=== PATIENT | female | born 1965 | race Caucasian/White ===

== ENCOUNTER 2019-05-06 16:00 | Emergency (ER) | payer BC, SELFPAY ==
[2019-05-06 16:03] VITALS: BP 147/66; PULSE 72; RESP 14; TEMP 36.6; O2SAT 95
--- NOTE | 2019-05-06 17:58 | W.ED.GENAD ---
Discharge Plan Disposition Patient Disposition: HOME Condition: Stable Discharge Details Chief Complaint: Orthopedic Clinical Impression: Left shoulder pain, Left shoulder strain Primary Care Provider: Chaim Carrillo ED Provider: Daylin Miller Home Meds and New Rx's Prescriptions: Continued fluticasone propionate [Flonase Allergy Relief] 9.9 ML spray,suspension 9.9 ml NS DAILY PRNRF: 0 ibuprofen 200 mg Tablet 400 mg PO QID PRNRF: 0 Discharge Instructions Instructions: Shoulder Pain (ED) Additional Instructions: Rest and ice your left shoulder as much as possible. Alternate Tylenol and Motrin as needed directed for pain. Follow-up with your primary care doctor in 1 week for reevaluation. If your symptoms do not improve or worsen, follow-up with orthopedics for reevaluation and for referral for possible MRI or therapy. Return to the emergency department if you develop any worsening or new concerning symptoms. Referrals: Jorge Burr MD [ [facility] STAFF PHYSICIAN] - Discharge Data Discharge Physician: Daylin Miller Medical Decision Making 53-year-old female who presents with left shoulder and left upper arm pain after trip and fall today. She has limited abduction and flexion at left shoulder due to pain. No deformities noted. No focal deficits. Neurovascular intact. Dose of ibuprofen given here. Left shoulder x-ray negative for acute findings. Differential diagnosis includes strain versus sprain. Discussed that there is also possibility of rotator cuff tear. She is instructed to rest, ice, do gentle range of motion exercises to prevent frozen shoulder. She is instructed to follow the primary care doctor for reevaluation and referral to orthopedics if her symptoms do not improve or worsen. Medical Records Medical records reviewed: Yes I reviewed the patient's medical records. Imaging Data Radiologic Study: Radiologist's impression: XR Left Shoulder EXAM DATE/TIME: 05/06/2019 6:33 PM CLINICAL HISTORY: 53 years old, female; Signs and symptoms; Other: S/P fall onto L shoulder, R/O FX TECHNIQUE: Imaging protocol: XR Left shoulder. Views: 2 or more views. COMPARISON: No relevant prior studies available. FINDINGS: Bones/joints: No fractures. Glenohumeral alignment is normal. A.C. joint alignment is normal. No blastic or lytic lesions. Adjacent ribs and lung parenchyma are unremarkable. Pleural space: No visible effusion or pneumothorax. Soft tissues: No gross soft tissue abnormalities. IMPRESSION: No acute osseous abnormalities. HPI General Mode of arrival: ambulatory. Date/Time Provider Initiated Documentation: 05/06/19 16:06. Limitations to Documentation: no limitations. Information obtained by: patient. HPI Narrative: Patient is a 53-year-old female who presents with left shoulder pain after trip and fall over a gate today in which she extended her left arm. She denies any other injuries. She does admit to similar pain in her left shoulder of the past 2 weeks after a previous fall. She states she has limited extension of her arm due to left shoulder and left upper arm pain. Last dose of Motrin 11 AM. Related Data Home Medications Medication Instructions Recorded Confirmed fluticasone propionate [Flonase 9.9 ml NS DAILY PRN 12/09/15 05/06/19 Allergy Relief] ibuprofen 400 mg PO QID PRN 05/06/19 05/06/19 Allergies Allergy/AdvReac Type Severity Reaction Status Date / Time No Known Allergies Allergy Unverified 05/06/19 16:07 General Stated Complaint: Orthopedic SORIN: 3 Review of Systems Review of Systems All systems reviewed & are unremarkable except as noted in HPI and below ENT Denies vertigo Musculoskeletal Denies back pain, Denies joint swelling and Reports other (L shoulder pain) Integumentary/Breasts Denies lesions and Denies rash Neurologic Denies vertigo PFS Medical History No significant past medical history (Acute) Surgical History History of lumbar discectomy (Acute) Colonoscopy - MAC (06/08/17) Social History Smoking/Tobacco Use Status: Current every day Tobacco Type: cigarettes Alcohol Intake: never Drug use: Never Substance use type: does not use Do you feel safe at home: Yes Do you feel safe in your relationship?: Yes Exam Const General: cooperative, healthy appearing and no acute distress HENMT Head: normal to inspection Mouth: oral mucosae normal Eyes General: appearance normal, both eyes and all related structures Neck Neck: normal visual inspection Resp Effort & Inspection: normal respiratory effort and able to speak in complete sentences Cardio Rate: regular rate Skin General skin exam: no rashes or lesions noted Neuro General: alert, awake and oriented x3 Motor: muscle tone normal throughout Extrem Other: Limited abduction and flexion due to pain in left shoulder and left upper arm. No deformities noted. No ecchymosis, erythema, edema. No tenderness to palpation of left shoulder or left upper arm. Psych Appearance: grossly normal Affect: normal affect Course Vital Signs Temperature 97.9 F 05/06/19 16:03 Pulse 72 05/06/19 16:03 Respiratory Rate 14 05/06/19 16:03 Blood Pressure 147/66 H 05/06/19 16:03 Pulse Oximetry 95 05/06/19 16:03 Temperature 97.9 F 05/06/19 16:03 Temperature Source Temporal Artery Scan 05/06/19 16:03 Pulse 72 05/06/19 16:03 Respiratory Rate 14 05/06/19 16:03 Respiratory Effort Non-Labored 05/06/19 16:05 Blood Pressure 147/66 H 05/06/19 16:03 Blood Pressure Position Sitting 05/06/19 16:03 Pulse Oximetry 95 05/06/19 16:03 Oxygen Delivery Method Room Air 05/06/19 16:03 Oxygen Flow Rate 0 05/06/19 16:03 Pain Level 3 05/06/19 16:07
[2019-05-06] MEDS: Ibuprofen 600 MG TAB PO (18:01)
[2019-05-06 18:04] VITALS: BP 116/73; PULSE 69; RESP 22; TEMP 37.1; O2SAT 95
--- NOTE | 2019-05-06 18:40 | DI.RAD_ITS ---
SYMPTOM/DIAGNOSIS: S/P FALL, ? FX, PAIN LEFT SHOULDER: Four views. No acute fracture or dislocation is seen. Mild degenerative changes are seen at the acromioclavicular joint. The soft tissues are unremarkable. IMPRESSION: No acute fracture or dislocation of the shoulder.
--- NOTE | 2019-05-06 18:42 | DI.VRAD_ITS ---
EXAM: XR Left Shoulder EXAM DATE/TIME: 05/06/2019 6:33 PM CLINICAL HISTORY: 53 years old, female; Signs and symptoms; Other: S/P fall onto L shoulder, R/O FX TECHNIQUE: Imaging protocol: XR Left shoulder. Views: 2 or more views. COMPARISON: No relevant prior studies available. FINDINGS: Bones/joints: No fractures. Glenohumeral alignment is normal. A.C. joint alignment is normal. No blastic or lytic lesions. Adjacent ribs and lung parenchyma are unremarkable. Pleural space: No visible effusion or pneumothorax. Soft tissues: No gross soft tissue abnormalities. IMPRESSION: No acute osseous abnormalities. Dictated and Authenticated by: Rei Wakefield MD. Ordering:MARTELL Mao MD
== END 2019-05-06 19:26 | disposition home or self-care (01) ==
PROVIDERS: Emergency Provider Physician Assistant; PCP Internal Medicine
DX: S46.912A Strain of unspecified muscle, fascia and tendon at shoulder and upper arm level, left arm, initial encounter (principal); W01.0XXA Fall on same level from slipping, tripping and stumbling without subsequent striking against object, initial encounter
CPT/HCPCS: 99283; 73030; 99282

== ENCOUNTER 2019-11-21 02:57 | Outpatient (CLI) | payer BC, SELFPAY ==
--- NOTE | 2019-11-21 08:40 | DI.MAMMO_ITS ---
EXAM: MG MAMMO SCREENING CLINICAL HISTORY: SCREENING Z12.39 TECHNIQUE: Bilateral full field digital CC and MLO mammographic images were obtained with 3D tomosyn thesis and utilizing computer aided detection (CAD). COMPARISON: Available for comparison. FINDINGS: Masses/Architectural Distortion: The nodule in the subareolar region of the right breast appears stab le. No suspicious masses are seen. Microcalcifications: No suspicious pleomorphic-type are seen. Skin Thickening/Nipple Retraction: None. IMPRESSION: 1. No significant interval change with no specific features of malignancy noted. 2. Unless there is more urgent need, screening mammography is recommended, as per [employer] guidelines. ACR BI-RAD Category- 1 Negative Breast Density - Category C - Heterogeneously dense The mammogram demonstrates the patient's breast tissue is dense. Dense breast tissue is very common a nd is not abnormal but dense breast tissue can make it harder to find cancer on a mammogram. Also, de nse breast tissue may increase their breast cancer risk. This information about the result of the [facility] mogram report was provided to the patient to raise their awareness. Use this report when you speak wi th the patient about their risks for breast cancer, which includes their family history. At that time , you may recommend for more screening tests (Ultrasound or MRI) as they might be useful based on the ir risk. A negative radiographic report should not delay biopsy if a dominant or clinically suspicious mass is present. Up to ten percent of cancers are not identified on mammography. A negative report may reinforce clinical impression. Adenosis and dense breasts may obscure an underlying neoplasm. False positive reports average 6 to 10%. Patient will receive a letter notifying them of these results.
== END 2019-11-21 03:17 ==
PROVIDERS: PCP Internal Medicine; Visit Provider Nurse Practitioner Family
DX: Z12.31 Encounter for screening mammogram for malignant neoplasm of breast (principal)
CPT/HCPCS: 77063; 77067

== ENCOUNTER 2022-01-08 17:56 | Emergency (ER) | payer BC, SELFPAY ==
[2022-01-08 18:00] VITALS: BP 142/80; PULSE 72; RESP 18; TEMP 36.7; O2SAT 100
--- NOTE | 2022-01-08 18:00 | DI.CT_ITS ---
Exam(s) CT HEAD WO EXAM: CT HEAD WO CLINICAL HISTORY: AMS. TECHNIQUE: Imaging Protocol: Axial computed tomography images with coronal and sagittal reformatted images were created and reviewed COMPARISON: No exams were available for comparison FINDINGS: Ventricles and Extra axial spaces: Normal in size and morphology for the patient's age. Hemorrhage: None. Cerebral parenchyma: Normal. Midline shift: None. Brainstem/Cerebellum: Normal. Calvarium: Normal. Visualized Paranasal sinuses/Mastoids: Clear. Soft Tissues: Unremarkable. IMPRESSION: No acute intracranial process. RADIATION DOSE DELIVERED: 643.93mGy.cm Total DLP DATA REPOSITORY: All CT scans at this facility are submitted to the National Radiology Data Registry (NRDR) Dose Index Registry (DIR) with the [employer] (ACR). RADIATION OPTIMIZATION: All CT scans at this facility use at least one of these dose optimization te chniques: automated exposure control; mA and/or kV adjustment per patient size (includes targeted exa ms where dose is matched to clinical indication); or iterative reconstruction.
--- NOTE | 2022-01-08 18:00 | RT.EKG_ITS ---
APPROVED REPORT Exam: Resting ECG Reason for Exam: [facility] Patient Location: E HR:69 bpm ECG Measurements Heart Rate 69 AXIS ND 161 P 59 QRSd 101 QRS 0 QT 404 T [id number] QTc 433 Conclusion Sinus rhythm...normal P axis, V-rate 60- 99 Indeterminate axis...QRS axis indeterminate Nonspecific T abnormalities, inferior leads...T <-0.10mV, II III aVF Physician: no stemi
--- NOTE | 2022-01-08 18:00 | DI.RAD_ITS ---
Exam(s) XR CHEST 2V PA LATERAL EXAM: XR CHEST 2V PA LATERAL CLINICAL HISTORY: SOB TECHNIQUE: 2D digital imaging was performed of the chest. Two images were obtained. PA and lateral views were obtained. COMPARISON: No exams were available for comparison FINDINGS: MEDIASTINUM: Normal. HEART: Normal. PULMONARY VASCULATURE: Normal. LUNGS: Clear. PLEURAL SPACE: No pleural effusion or pneumothorax. BONE:Within normal limits for the patient's age. OTHER FINDINGS:Normal. IMPRESSION: No acute pulmonary findings. DATA REPOSITORY: RADIATION DOSE DELIVERED:
[2022-01-08 18:03] VITALS: RESP 15
--- NOTE | 2022-01-08 18:07 | ED.GENADUL_ITS ---
Discharge Plan Disposition Patient Disposition: HOME Condition: Improving Discharge Details Clinical Impression: Exhaustion, Disorientation Primary Care Provider: Chaim Carrillo ED Provider: Brittaney Nelson Home Meds and New Rx's Prescriptions: No Action fluticasone propionate [Flonase Allergy Relief] 9.9 ML spray,suspension 9.9 ml NS DAILY PRN0RF Label Comments: not used recently ibuprofen 200 mg Tablet 400 mg PO QID PRN0RF Discharge Instructions Instructions: Dehydration (ED), Fatigue (ED) Additional Instructions: At this time work-up is largely within normal limits. I do believe that this is exhaustion from overworking and dehydration. Please try to eat 3 small meals a day. Follow up with primary care provider in 3-5 days. Return to ED sooner if any worsening or concerns. Increase oral fluids. Please take Tylenol or Ibuprofen with food every 4-6 hours as needed for pain and swelling. Stand Alone Forms: Work Release Referrals: Chaim Carrillo MD [Primary Care Provider] - 3 days Discharge Data Discharge Date/Time-TO BE ENTERED AT DEPARTURE: 01/08/22 19:44 Medical Decision Making <Brittaney Nelson - Last Filed: 01/08/22 20:04> 56-year-old female presents to the ER with chief complaint of disorientation and nausea. Patient is a poor historian. She reports that last thing to remember she was on a conference call. She denies any pain. Denies any headache or blurry vision. No numbness or tingling. She denies any recent head injuries. Denies any significant past medical history denies medications on a normal basis. She denies any alcohol. No focal neuro deficits noted on initial exam. Patient reports she is vaccinated for Covid. 1815: Spoke with patients who reports that she was on the phone with her colleague and he noted that she seemed disoriented. He reports been that she has been working at least 100 hours a week and drinking coffee all day and night and he reports that she probably has not eaten anything today. At this time work-up includes labs, EKG, CT head and x-ray. Labs show no leukocytosis, sodium slightly low 134, glucose 131 urinalysis shows small blood 3-5 RBCs no leukocytes no nitrites. Culture is not indicated at this time. Initial troponin within normal limits. EKG normal sinus rhythm. EKG was reviewed by Dr. Dada Shaikh ER attending, please see his official report. FINDINGS: Brain: Cerebral sulci show bilateral symmetry with no supratentorial mass or mass effect detected. Brainstem and cerebellum are unremarkable. There is no evidence of acute intracranial hemorrhage. Cerebral ventricles: Ventricular and cisternal spaces are normal in size and configuration and there is no midline shift or hydrocephalus seen. Paranasal sinuses: Grossly clear throughout. Mastoid air cells: Grossly clear bilaterally. Bones/joints: Bony calvarium and skull base are intact and no acute fractures are detected. Soft tissues: Unremarkable. IMPRESSION: Unremarkable noncontrast head CT with no evidence of an acute intracranial process. Imaging protocol: XR of the chest. Views: 2 views. COMPARISON: CR XR shoulder LT complete 2+V 05/06/2019 6:34 PM FINDINGS: Lungs: Lungs are clear throughout with no mass or consolidation detected. Pleural spaces: No pneumothorax or pleural effusion detected. Heart/Mediastinum: Heart size is normal and vessel margins are sharply defined. Bones/joints: No acute osseous lesions are detected. IMPRESSION: No acute findings. Thank you for allowing us to participate in the care of your patient. Dictated and Authenticated by: Rangel Andrews MD 193: Discussed imaging results and labs with patient and . Verbalized understanding. She reports feeling improved. P.o. challenge performed prior to discharge. Patient tolerating without difficulty. Patient has received a liter of normal saline. Has remained hemodynamically stable. She appears much more alert and oriented upon reevaluation. At this time I do feel that patient symptoms are due to exhaustion and stress. Discussed taking time off from work and eating 3 meals a day with patient who verbalized understanding. She reports she did not eat anything today. Patient given a work note until Wednesday use if she desires. Discussed tricked return instructions verbalized understanding. This text was generated using go2 mediaation system, please disregard any oddities of phrase or misspellings. HPI <Brittaney Nelson - Last Filed: 01/08/22 20:04> General Mode of arrival: wheelchair . Date/Time Provider Initiated Documentation: 01/08/22 17:58 . Limitations to Documentation: altered mental status . Information obtained by: patient, RN notes reviewed and old records reviewed . HPI Narrative: 56-year-old female presents to the ER with chief complaint of disorientation and nausea. Patient is a poor historian. She reports that last thing to remember she was on a conference call. She denies any pain. Denies any headache or blurry vision. No numbness or tingling. She denies any recent head injuries. Denies any significant past medical history denies medications on a normal basis. She denies any alcohol. No focal neuro deficits noted on initial exam. Patient reports she is vaccinated for Covid. Related Data Home Medications Medication Instructions Recorded Confirmed fluticasone propionate 50 9.9 ml NS DAILY PRN 12/09/15 01/08/22 mcg/actuation nasal spray,suspension (Flonase Allergy Relief) ibuprofen 200 mg tablet 400 mg PO QID PRN 05/06/19 01/08/22 Allergies Allergy/AdvReac Type Severity Reaction Status Date / Time No Known Allergies Allergy Unverified 01/08/22 18:07 General Stated Complaint: AMS/LOC SORIN: 3 Review of Systems <Brittaney Nelson - Last Filed: 01/08/22 20:04> Narrative: Constitutional: Negative for weight loss, well groomed, normal body habitus, appears comfortable. Is mildly confused. Reports feeling disoriented. HEENT: Denies trauma, headaches, blurry vision, nasal discharge, sore throat, trouble swallowing. Chest: Denies chest pain, palpitations, irregular rhythm, hypertension. Respiratory: Denies cough, hemoptysis. Positive shortness of breath. GI: Denies abdominal pain, vomiting, diarrhea, constipation. Positive nausea. : Denies dysuria, hematuria, flank pain, rectal bleeding. Neuro: Denies dizziness, blurry vision, weakness, syncope, headache or facial numbness. Hematologic: Denies easy bruising, intolerance to heat or cold, hair loss. PFSH <Brittaney Nelson - Last Filed: 01/08/22 20:04> All Active Problems (Updated 01/08/22 @ 19:34 by Brittaney Nelson) Exhaustion (Acute) Disorientation (Acute) Medical History (Updated 01/08/22 @ 19:34 by Brittaney Nelson) No significant past medical history Surgical History (Updated 05/06/19 @ 19:23 by Daylin Miller DO) Colonoscopy - MAC (06/08/17) History of lumbar discectomy Social History Smoking/Tobacco Use Status: Current every day Tobacco Type: cigarettes Smoking risk assessment performed?: Yes Alcohol Intake: never Drug use: Never Substance use type: does not use Do you feel safe at home: Yes Do you feel safe in your relationship?: Yes Exam <Brittaney Nelson - Last Filed: 01/08/22 20:04> Narrative Exam Narrative: Constitutional: Alert and oriented x3. Appears stated age. Normal body habitus. Head: Normocephalic, no trauma. Eyes: Pupils PERRL, Red reflex noted, EOM's intact. Eyelids symmetrical without lesions, discharge, or swelling. ENT: Bilateral TM's WNL, External ear normal to inspection, no mastoid TTP, swelling, or erythema, Nasal turbinates WNL, no nasal discharge. Normal dentition, Posterior pharynx WNL, no exudate. Chest: RRR, Normal S1, S2, distal pulses intact. Resp: Lungs clear to auscultation bilaterally, no wheezes, rales, or rhonchi. Abdomen: Soft, non-distended, Normoactive bowel sounds all 4 quads. Musculoskeletal: Normal gait, 5/5 strength to all four extremities. Skin: No suspicious rashes or lesions. Capillary refill less than 2 sec. Neurologic: Cranial nerves II-XII intact. Alert and oriented x 3. Motor: No deficits noted. Sensory: Intact bilaterally all 4 extremities. Reflexes: DTR's intact bilaterally.. Hematologic/Lymphatic: No ecchymosis, no lymphadenopathy. Course <Brittaney Nelson - Last Filed: 01/08/22 20:04> Vital Signs Vital signs: Vital Signs Temperature 36.7 C 01/08/22 18:00 Pulse 72 01/08/22 18:00 Respiratory Rate 18 01/08/22 18:00 Blood Pressure 142/80 H 01/08/22 18:00 Pulse Oximetry 100 01/08/22 18:00 Temperature 36.7 C 01/08/22 18:00 Temperature Source Temporal Artery Scan 01/08/22 18:00 Pulse 72 01/08/22 18:00 Respiratory Rate 15 01/08/22 18:03 Respiratory Effort Non-Labored 01/08/22 18:03 Respiratory Depth Normal 01/08/22 18:03 Respiratory Pattern Irregular 01/08/22 18:03 Blood Pressure 142/80 H 01/08/22 18:00 Blood Pressure Position Supine 01/08/22 18:00 Pulse Oximetry 100 01/08/22 18:00 Oxygen Delivery Method Room Air 01/08/22 18:00 Oxygen Flow Rate 0 01/08/22 18:00 Pain Level 0 01/08/22 18:00
[2022-01-08 18:17] LABS: Abs Immature Grans 0.02 10^3/uL (0.0-0.06); Absolute Basophil Count 0.06 10^3/uL (0.0-0.2); Absolute Eosinophil Count 0.18 10^3/uL (0.0-0.7); Absolute Lymphocyte Count 1.75 10^3/uL (1.2-3.4); Absolute Monocyte Count 0.48 10^3/uL (0.1-0.8); Absolute Neutrophil Count 7.89 10^3/uL (1.2-6.7); Basophils % 0.6; Eosinophils % 1.7; HCT 40.9 % (36.0-46.0); HGB 13.2 g/dL (11.2-15.7); Immature Grans % 0.2; Lymphocytes % 16.9; MCH 29.4 pg (27.0-33.0); MCHC 32.3 % (32.0-36.0); MCV 91.1 fL (80-95); MPV 9.1 fL (8.0-11.0); Monocytes % 4.6; Nucleated RBC 0 %; Platelet Count 259 10^3/uL (130-400); RBC 4.49 10^6/uL (3.93-5.22); RDW 12.5 % (11.7-14.6); RDW-SD 41.6 fL; WBC 10.38 10^3/uL (4.4-10.8)
[2022-01-08] MEDS: Ondansetron 4 MG/2 ML VIAL IVP (18:26)
[2022-01-08] MEDS: Normal Saline 1,000 ML 1000 ML IV (18:26)
[2022-01-08 18:57] LABS: Bilirubin Negative (Negative); Blood Small (Negative); Clarity Clear (Clear); Glucose Negative (Negative); Ketones Negative (Negative); Leukocyte Esterase Negative (Negative); Nitrite Negative (Negative); Specific Gravity >= 1.030 (1.005-1.025); Urobilinogen 0.2 EU/dL (Up TO 0.2)
[2022-01-08 19:05] LABS: Bacteria Negative HPF (Negative); C & S Indicated? No; Casts Negative LPF (Negative); Crystals Negative HPF (Negative); Epithelial Cells Few HPF (Negative); Mucus Trace (Negative); WBC 0-2 HPF (0-5)
[2022-01-08 19:08] LABS: ALT 22 U/L (14-59); AST 14 U/L (15-37); Albumin 3.7 g/dL (3.4-5.0); Alkaline Phosphatase 59 U/L (46-116); Anion Gap 7.6 mmol/L (3-11); BUN 18 mg/dL (7-18); Bilirubin, Total 0.4 mg/dL (0.2-1.0); CO2 25.4 mmol/L (21.0-32.0); CREATININE 0.9 mg/dL (0.55-1.02); Calcium 8.7 mg/dL (8.5-10.1); Chloride 101 mmol/L (98-107); Glucose 131 mg/dL (74-106); Potassium 4.1 mmol/L (3.5-5.1); Sodium 134 mmol/L (136-145); Total Protein 6.9 g/dL (6.4-8.2); Troponin I < 50 ng/L (<or=60)
--- NOTE | 2022-01-08 19:08 | DI.VRAD_ITS ---
PROCEDURE INFORMATION: Exam: CT Head Without Contrast Exam date and time: 01/08/2022 6:11 PM Age: 56 years old Clinical indication: Altered mental status/memory loss; Prior surgery TECHNIQUE: Imaging protocol: Computed tomography of the head without contrast. Radiation optimization: All CT scans at this facility use at least one of these dose optimization techniques: automated exposure control; mA and/or kV adjustment per patient size (includes targeted exams where dose is matched to clinical indication); or iterative reconstruction. COMPARISON: CT NECK WITH CONTRAST 06/27/2016 10:58 AM FINDINGS: Brain: Cerebral sulci show bilateral symmetry with no supratentorial mass or mass effect detected. Brainstem and cerebellum are unremarkable. There is no evidence of acute intracranial hemorrhage. Cerebral ventricles: Ventricular and cisternal spaces are normal in size and configuration and there is no midline shift or hydrocephalus seen. Paranasal sinuses: Grossly clear throughout. Mastoid air cells: Grossly clear bilaterally. Bones/joints: Bony calvarium and skull base are intact and no acute fractures are detected. Soft tissues: Unremarkable. IMPRESSION: Unremarkable noncontrast head CT with no evidence of an acute intracranial process. Dictated and Authenticated by: Rangel Andrews MD. Ordering:ZACH Quispe MD
--- NOTE | 2022-01-08 19:10 | DI.VRAD_ITS ---
PROCEDURE INFORMATION: Exam: XR Chest Exam date and time: 01/08/2022 6:11 PM Age: 56 years old Clinical indication: Other: SOB TECHNIQUE: Imaging protocol: XR of the chest. Views: 2 views. COMPARISON: CR XR shoulder LT complete 2+V 05/06/2019 6:34 PM FINDINGS: Lungs: Lungs are clear throughout with no mass or consolidation detected. Pleural spaces: No pneumothorax or pleural effusion detected. Heart/Mediastinum: Heart size is normal and vessel margins are sharply defined. Bones/joints: No acute osseous lesions are detected. IMPRESSION: No acute findings. Dictated and Authenticated by: Rangel Andrews MD. Ordering:ZACH Quispe MD
[2022-01-08 19:46] VITALS: BP 136/72; PULSE 76; RESP 16; TEMP 36.8; O2SAT 100
== END 2022-01-08 19:44 | disposition home or self-care (01) ==
PROVIDERS: Emergency Provider Registered Nurse Emergency; PCP Internal Medicine
DX: R41.0 Disorientation, unspecified (principal); R53.83 Other fatigue; R11.0 Nausea
CPT/HCPCS: 36415; 80053; 81025; 93005; 96361; 96374; 99285; 70450; 71046; 81003; 81015; 83735; 84484; 85025; 93010; 99284; J2405

== ENCOUNTER → 2022-03-26 02:17 | Outpatient (CLI) | payer BC, SELFPAY ==
--- NOTE | 2022-03-26 08:00 | DI.MAMMO_ITS ---
Exam(s) MAMMO SCREENING EXAM: MAMMO SCREENING CLINICAL HISTORY: SCREENING, Z12.31 TECHNIQUE: Mammograms were interpreted according to the usual protocol including computer analysis w [facility] CAD system, tomosynthesis and C-view imaging. COMPARISON: FINDINGS: The breasts are heterogeneously dense. No dominant mass or clumped microcalcification is identified in either breast. Current examination is compared with previous examinations including October 2019 and there has been no gross interval change in appearance in comparison with the prior studies. IMPRESSION: No specific evidence of malignancy at this time. Routine screening examinations are suggested at yea rly intervals in this age group according to the ACS ACR guidelines. BI-RADS Category 1 - Negative Breast Density - Category C - Heterogeneously dense
== END ==
PROVIDERS: PCP Internal Medicine; Visit Provider Family Medicine
DX: Z12.31 Encounter for screening mammogram for malignant neoplasm of breast (principal)
CPT/HCPCS: 77063; 77067

== ENCOUNTER 2022-04-10 15:40 | Outpatient (REF) | payer BC, SELFPAY ==
--- NOTE | 2022-04-10 10:15 | PAPFT_PTH ---
PATIENT: Kya Presley LOC: [facility] U#:[id number] AGE/SX: 56/F ROOM: RE04/10/[address]: Maranda Ya : 1965 BED: DIS: 04/10/2022 SPEC #: [id number] RECD: 04/10/22 16:06 STATUS: DENISSE REKayy #: [id number] MARLEE: 04/10/22 10:[address]: Maranda Ya DEPT: [facility] Cytology RECD BY: Joanne Ambriz ENTERED: 04/10/22 16:06 SP TYPE: PAPFT OTHR DR: Chaim Carrillo Tissues: 1 - CX/ENDOCX FOR PAP SMEARS Procedures: PAP THIN PREP/U[facility] Screening HPV DNA PROBE Comments: [id number]
== END 2022-04-10 15:41 | disposition home or self-care (01) ==
LOC: LBN 15:40
PROVIDERS: PCP Internal Medicine; Visit Provider Family Medicine
DX: Z00.00 Encounter for general adult medical examination without abnormal findings (principal); Z12.4 Encounter for screening for malignant neoplasm of cervix; Z01.419 Encounter for gynecological examination (general) (routine) without abnormal findings; Z11.51 Encounter for screening for human papillomavirus (HPV)
CPT/HCPCS: 88142; 87624

== ENCOUNTER 2022-11-12 10:16 | Day surgery (SDC) | payer BC, SELFPAY ==
--- NOTE | 2022-11-12 05:19 | PDOC.DSDIS_ITS ---
Date of service: 11/12/22 Time of Service: 12:32 Discharge Plan Disposition Patient Disposition: Home Condition: Good Discharge Details Reason For Visit: Colonoscopy Attending Provider: Mo Celaya Primary Care Provider: Chaim Carrillo Home Meds and New Rx's Prescriptions: Continued fluticasone propionate [Flonase Allergy Relief] 9.9 ML spray,suspension 9.9 ml NS DAILY PRN Label Comments: not used recently albuterol sulfate [Ventolin HFA] 90 mcg/actuation HFA aerosol inhaler 2 puff inhalation Q6H PRN ibuprofen 200 mg Tablet 400 mg PO QID PRN Discontinued polyethylene glycol 3350 17 gram/dose powder 238 g PO ONCE Qty: 238 0RF Rx Instructions: take per colonoscopy instructions bisacodyl [Dulcolax (bisacodyl)] 5 mg tablet,delayed release (DR/EC) 5 mg PO ONCE Qty: 4 0RF Rx Instructions: take per colonoscopy instructions Discharge Instructions Instructions: Colorectal Polyps (DC) Additional Instructions: 1. If tolerated, consume a soft, low fiber diet for 1-2 days. 2[address] Do not drive, drink alcohol, operate machinery, make critical decisions, or d o activities that require coordination or balance for 24 hours. 3. Because air was put into your colon during the procedure, expelling air from your rectum (passing gas or farting) is normal. 4. You may not have a bowel movement for 1-3 days because of the colonoscopy prep. This is normal. 5. Go directly to the emergency room if you notice any of the following: Develop chills (warm to touch), or if you have a thermometer and your temperature is above 101 Difficulty breathing or difficultly swallowing Persistent vomiting Severe abdominal pain, other than gas cramps Severe chest pain Black, tarry stools Any bleeding ? exceeding one tablespoon 6. Call your physician if the site where your intravenous was started becomes red, swollen, painful, and warm to touch. 7. Your physician has reviewed your pre-procedure medications. Please continue to take those medications as previously ordered. You will be given specific information/education regarding any changes to your medications before leaving. Stand Alone Forms: Delvis Parsons (SEBASTIÁNU) Activity:: Activity as Tolerated Diet:: As Tolerated Discharge Orders Discharge Orders: Discharge Order (Routine); Ordered 11/12/22 Ordered By: Mo Celaya DS: Diagnosis Discharge Diagnosis (1) Colorectal polyp detected on colonoscopy: Status: Acute Asessment and Plan: I will contact you when the pathology results from the biopsies are available.
--- NOTE | 2022-11-12 05:21 | W.COLOREPORT ---
Date of service: 11/12/22 Time of Service: Colonoscopy Report Date of procedure: 11/12/22 Pre-op diagnosis general: Routine health maintenance screening colonoscopy Post-op diagnosis procedure note: other (Colonoscopy with polypectomy) Procedure: colonoscopy Surgeon: Mo Celaya Anesthesia Type: General:No Airway Estimated blood loss (mL): 20 Pathology: other (polyps at 20, 17 and 15 cm) Complications: None Disposition: same day Indications: Kya is a 56 year old woman presenting for screening colonoscopy Prep: Miralax/Dulcolax Procedure Start Time: : Procedure End Time: Retraction Time: 21 Findings: 0.5 cm polyp at 20 CM CF, 0.25 cm polyps at 17 cm CF, 0.75 cm at 15 snare Procedure Description: After the induction of monitored anesthetic care, and with the patient in left lateral decubitus position, I began by performing an external anorectal exam.? Perineum and skin were normal, as was the anal verge.? There was no evidence of external hemorrhoids.? Next, I performed a digital rectal exam.? This was normal.? Next, I advanced a colonoscope into the rectal vault.? I performed retroflexion.? This was normal.? Using insufflation, I then advanced the colonoscope beyond the rectal folds and into the sigmoid colon before advancing towards the cecum.? The quality of the prep was excellent.? The scope was noted to be in the cecum by identification of the ileocecal valve and appendiceal orifice.? I then began withdrawing the colonoscope using repeated irrigation as necessary for full evaluation of the colonic mucosa. ?Once the scope was withdrawn to the level of the rectum, great care was taken to examine portions of the rectal folds.?Around 20 cm from the anal verge I identified a 0.5 cm polyp. ?It appeared sessile in character. ?I was able to remove this with a cold forcep. Similarly, I performed cold forcep polypectomy on two seperate polyps at 17 cm. Both were less than 0.5 cm, and both were sessile. I examined the site, and there was minimal bleeding. Finally, around 15 cm from the anal verge I identified a 0.75 cm polyp. ?It appeared pedunculated in character. ?I was able to remove this with a cold snare. ?I examined the site, and there was minimal bleeding. ?Once this was completed, I continued to withdraw the scope and examine the remainder of the colonic mucosa.?Once this was completed, I continued to withdraw the scope and examine the remainder of the colonic mucosa. Finally, the scope was withdrawn and the patient was brought to the same-day surgery recovery unit as the anesthetic wore off. ?The findings and instructions were shared with the patient prior to discharge.
[2022-11-12 10:33] VITALS: BP 122/71; PULSE 85; RESP 16; TEMP 36.5; O2SAT 96
[2022-11-12] MEDS: Lactated Ringers 1,000 ML 80 ML IV (10:55)
--- NOTE | 2022-11-12 10:56 | ANES.PREOP_ITS ---
General Info Date of Service Date Performed: 11/12/22 Height: 5 ft 5 in Weight: 72.3 kg Body Mass Index (BMI): 26.5 Surgical Procedure: Operation Date: 11/12/22 10:35 Proposed Procedure Side Surgeon p Colonoscopy Mo Celaya MD Pre-Op Diagnosis Post-Op Diagnosis COLON CANCER SCREENING FAMILY HISTORY OF COLON CANCER PERSONAL HISTORY OF POLYPS Meds Allergies and Home Medications Allergies Allergy/AdvReac Type Severity Reaction Status Date / Time No Known Allergies Allergy Unverified 11/12/22 10:32 Home Medication Medication Instructions Recorded fluticasone propionate 50 9.9 ml NS DAILY PRN 12/09/15 mcg/actuation nasal spray,suspension (Flonase Allergy Relief) ibuprofen 200 mg tablet 400 mg PO QID PRN 05/06/19 albuterol sulfate 90 mcg/actuation 2 puff inhalation Q6H PRN 07/13/22 aerosol inhaler (Ventolin HFA) Current Visit Medications: Current Medications Generic Name Dose Route Start Last Admin Trade Name Freq PRN Reason Stop Dose Admin Hyoscyamine Sulfate 0.125 mg 11/12/22 05:22 Hyoscyamine 0.125 Mg Sl/Oral/Chew SL DIRECTED PRN Ringer's Solution 1,000 mls @ 80 mls/hr 11/12/22 06:00 IV 12/11/22 23:59 [facility] IV Miscellaneous Supplies 1 each 11/12/22 06:00 Iv Access IV 12/11/22 23:59 DIRECTED BRYON Ondansetron HCl 4 mg 11/12/22 05:22 Ondansetron 4 Mg/2 Ml Vial IVP Q4H PRN PRN Nausea / Vomiting Sodium Chloride 0 ml 11/12/22 06:00 Normal Saline Flush 10 Ml Syr IV 12/11/22 23:59 PRN PRN Sodium Chloride 0 ml 11/12/22 06:00 Normal Saline 10 Ml Vial IJ 12/11/22 23:59 DIRECTED PRN Sterile Water 0 ml 11/12/22 06:00 Water,Injection,Sterile 10 Ml Vial IJ 12/11/22 23:59 DIRECTED PRN PFSH Active Problems Active Problems: Problem Status Onset Code Smoker F17.200 Medical History Medical History Environmental allergies No significant past medical history Surgical History Surgical History Colonoscopy - MAC (06/08/17) History of lumbar discectomy Tobacco Smoking/Tobacco Use Status: Current every day Tobacco Type: cigarettes Alcohol Alcohol Intake: never Substance Use Substance use: Never Substance use type: does not use Vital Signs and Lab Results Vital Signs Most Recent Vital Signs in EMR: Most Recent Vital Signs Temp Pulse Resp BP Pulse Ox 36.5 C 85 16 122/71 96 11/12/22 10:33 11/12/22 10:33 11/12/22 10:33 11/12/22 10:33 11/12/22 10:33 Lab Results Blood Type / Crossmatch: No Data to Display Complete Blood Count: No Data to Display Complete Metabolic Panel: No Data to Display Liver Function Panel: No Data to Display Coagulation Panel: No Data to Display Cardiac Panel: No Data to Display Arterial Blood Gas: No Data to Display Venous Blood Gas: No Data to Display Pancreas Panel: No Data to Display Thyroid Panel: No Data to Display Infectious Disease: No Data to Display Blood Cultures: No Data to Display Toxicology Panel: No Data to Display Anesthesia Assessment and Plan Anesthesia History Personal History: No History of Anesthesia Complications Family History: No Family History of Anesthesia Complications Exercise Tolerance Exercise Tolerance: Metabolic Equivalents>4 Pertinent Negatives Pertinent Negatives: No Symptoms of GERD, No Major Cardiovascular Symptoms or Complaints, No Major Pulmonary Symptoms or Complaints and No History of CVA/TIA Cardiac & Pulmonary Exam Cardiac Exam: Normal S1/S2 Heart Sounds Pulmonary Exam: Clear Bilateral Breath Sounds Implantable Cardiac Device Does patient have a Pacemaker or an ICD?: No Airway Exam Known Difficult Airway: No Mallampati Class: 1 Mouth Opening: Normal (> 3cm) Thyromental Distance: Greater than 3 cm Neck Range of Motion: Full ROM Neck Circumference: Normal Teeth Condition: Normal Dentition Airway Comments: Upper back left loose tooth ASA Classification ASA Score: ASA 2 Emergency Case?: No NPO Status NPO Status: NPO Clears >2 hours, Solids >8 hours Anesthesia Plan Resuscitation Status: Full Code Anesthesia Technique: General Anesthesia Airway Planned: Natural Airway Monitors Used: Standard Monitors
[2022-11-12 10:58] VITALS: BMI 26.5
--- NOTE | 2022-11-12 11:37 | BOWEL_PTH ---
PATIENT: Kya Presley LOC: [facility] U#:[id number] AGE/SX: 56/F ROOM: RE11/12/[address]: Mo Celaya MD : 1965 BED: DIS: 11/12/2022 SPEC #: [id number] RECD: 11/12/22 12:34 STATUS: DENISSE REQ #: [id number] MARLEE: 11/12/22 11:[address]: Mo Celaya DEPT: Surgical Specimen RECD BY: Brenda Victoria ENTERED: 11/12/22 12:35 SP TYPE: Bowel OTHR DR: Chaim Carrillo Tissues: 1 - BIOPSY BOWEL 2 - BIOPSY BOWEL 3 - BIOPSY BOWEL Procedures: GROSS AND MICRO LEVEL 4 Comments: [id number]
[2022-11-12 11:48] VITALS: BP 109/59; PULSE 78; RESP 16; TEMP 36; O2SAT 97
--- NOTE | 2022-11-12 11:51 | W.ANESPOSTOP ---
Postoperative Evaluation Date, Time and Location Date Performed: 11/12/22 Time Performed: 11:52 Patient Location: Day Surgery Unit Vital Signs Most Recent Imported Vital Signs: Most Recent Vital Signs Temp Pulse Resp BP Pulse Ox 36 C L 78 16 109/59 L 97 11/12/22 11:48 11/12/22 11:48 11/12/22 11:48 11/12/22 11:48 11/12/22 11:48 Most Recent Manually Entered Vital Signs: Adult Blood Pressure: 109/59 Heart Rate: 74 Respirations: 12 Oxygen Saturation (%): 100 Temperature (C): 36.3 C Pain Score (0-10 Scale): 0 Pain Score Most Recent Pain Score: Most Recent Pain Score Pain Level 0 11/12/22 11:48 Assessment Mental Status: Awake (Alert & Oriented to Patient Baseline) Airway and Respiratory Function: Patent airway with normal (patient baseline) respiratory exam Cardiovascular Function: Hemodynamically Stable Hydration Status: Adequately Hydrated Nausea & Vomiting: No Nausea or Vomiting Pain: Pt. Denies Any Pain Peripheral Nerve Block: Patient did not receive a nerve block
[2022-11-12 11:52] VITALS: BP 109/59; PULSE 74; RESP 12; TEMPC 36.3; O2SAT 100
[2022-11-12 12:12] VITALS: BP 107/56; PULSE 65; RESP 16; TEMP 36.2; O2SAT 99
== END 2022-11-12 12:32 | disposition home or self-care (01) ==
PROVIDERS: PCP Internal Medicine; Visit Provider Surgery
PROC: 0DJD8ZZ Inspection of Lower Intestinal Tract, Via Natural or Artificial Opening Endoscopic (ICD-10-PCS; CPT 45378; principal; 2022-11-12 10:30)
DX: Z12.11 Encounter for screening for malignant neoplasm of colon (principal); Z80.0 Family history of malignant neoplasm of digestive organs; Z86.010 Personal history of colon polyps; F17.210 Nicotine dependence, cigarettes, uncomplicated; K63.5 Polyp of colon; K63.89 Other specified diseases of intestine
CPT/HCPCS: 45385; 45380; 88305

== ENCOUNTER 2025-08-08 16:10 | Outpatient (REF) | payer BC, SELFPAY ==
[2025-08-08 14:29] LABS: RBC 0-2 HPF (0-2); WBC 20-50 HPF (0-5)
== END 2025-08-08 16:11 | disposition home or self-care (01) ==
LOC: NCHCN 16:10
PROVIDERS: PCP Internal Medicine; Visit Provider Physician Assistant Medical
DX: R30.0 Dysuria (principal)
CPT/HCPCS: 87077; 81015; 87086; 87186